=== PATIENT | male | born 1990 | race Caucasian/White ===

== ENCOUNTER 2017-01-21 03:51 | Inpatient (IN) | payer OTHER ==
[~2017-01-21] VITALS: Ht 160 cm; Wt 54.0 kg
--- NOTE | ~2017-01-21 | CON ---
[place], [place] REPORT OF CONSULTATION NAME: JOSS CARMONA UNIT #: [id number] ROOM: 505 DOCTOR: YURY NASCIMENTO DMD BIRTHDATE: [birth year] DOS: 01/21/2017 REASON FOR CONSULTATION: An upper anterior abscess. On exam, minimal swelling in the right mid . The patient states that pain and swelling have distinctly improved since admission. Intraoral exam, tooth #3 carries to the gumline. Moderate abscess extending from tooth #7 across the midline to tooth #10. Teeth #8, 9 and 10 appear to be . Abscess appears to be spontaneously draining. Discussed the treatment options with the patient including extraction and drainage or root canal therapy. The patient is currently seeing private dentist for treatment. Recommend the patient follow up with private dentist once the patient is discharged from the hospital. I would recommend that he be monitored for overnight and then released with oral antibiotic therapy to follow up with treatment. YURY NASCIMENTO DMD CM:CONSTR:REPORT OF CONSULTATION [id number] 01/21/17 1457 interface
[~2017-01-21 03:51] MED LIST: AFRIN SINUS 1515 ML NS; AMOXICILLIN500 MG PO; AMPICILLIN500 MG PO; ATIVAN1 MG PO; CLEOCIN150 MG PO; ENTEX PSE 400 M1 CER PO; HYDROCODONE BIT1 T11 PO; PENICILLIN VK500 MG PO; Peridex 473 ML473 ML PO; ULTRAM50 MG PO
[2017-01-21 04:05] VITALS: BP 127/89
[2017-01-21 04:29] LABS: BASO % 0.3 % (0.0-1.0); EOS # 0.1 10*3/uL (0.0-0.4); EOS % 1.3 % (1.0-4.0); HEMATOCRIT 39.9 % (42.0-52.0); LYMPH # 2.3 10*3/uL (1.3-4.4); LYMPH % 25.2 % (27.0-41.0); MEAN CELL VOLUME 90.7 fl (80.0-94.0); MEAN CORPUSCULAR HGB 29.5 pg (27.0-31.0); MEAN CORPUSCULAR HGB CONC 32.6 g/dl (33.0-37.0); MEAN PLATELET VOLUME 11.2 fl (9.6-12.3); MONO # 0.8 10*3/uL (0.1-1.0); MONO % 8.1 % (3.0-9.0); NEUT % 64.8 % (47.0-73.0); PLATELET COUNT AUTOMATED 173 10*3/uL (130-400); RED CELL DISTRI WIDTH 12.6 % (0-14.5); WHITE BLOOD COUNT 9.3 10*3/uL (4.8-10.8)
[2017-01-21 04:47] LABS: ALBUMIN 3.5 gm/dl (3.1-4.5); ALKALINE PHOSPHATASE 67 U/L (45-117); BUN 9 mg/dl (7-24); CHLORIDE 104 mmol/L (98-107); CREATININE 0.79 mg/dL (0.70-1.30); POTASSIUM 3.3 mmol/L (3.5-5.1); SGOT/AST 22 IU/L (3-35); SGPT/ALT 26 U/L (12-78); SODIUM 140 mmol/L (136-145); TOTAL PROTEIN 7.4 gm/dL (6.4-8.2)
--- NOTE | 2017-01-21 06:32 | NUR ---
PRIOR TO TRANSPORTING PT UP TO FLOOR. PT C/O CHEST PAIN. DR WILKERSON NOTIFIED AND ASSESSED PT.
[2017-01-21 06:40] VITALS: BP 119/71
--- NOTE | 2017-01-21 06:40 | NUR ---
Time: 639 A 26 year old MALE admitted to 5E under services of DEEP PATHAK DO, Pt. arrived via stretcher from ER. Chief complaint: CAME IN WITH C/O DENTAL ABSCESS. AB KEITH
[2017-01-21 07:20] LABS: ACT PARTIAL THROMBO TIME 26.3 SECONDS (20.8-31.5)
[2017-01-21 08:00] VITALS: BP 117/68
--- NOTE | 2017-01-21 08:04 | NUR ---
PT COMPLAINS OF FACIAL PAIN, MORPHINE GIVEN, SEE MAR. WILL MONITOR FOR EFFECTIVENESS.
--- NOTE | 2017-01-21 08:16 | NUR ---
called dr. benton office to notify of consult. staff given information on patient and reason for consult. they will notify physician of consult.
--- NOTE | 2017-01-21 09:22 | NUR ---
PT STATES MORPHINE HELPED "SOME. DIDN'T LAST LONG" STATES STILL NEESD PAIN MEDICAION RELIEF, NORCO GIVEN. SEE MAR.WILL MONITOR FOR EFFECTIVENESS
--- NOTE | 2017-01-21 10:30 | NUR ---
NORCO EFFECTIVE FOR PAIN
[2017-01-21 12:00] VITALS: BP 97/54
--- NOTE | 2017-01-21 12:30 | NUR ---
PT COMPLAINS OF PAIN RIGHT SIDE OF FACE. MORHPINE GIVEN. SEE MAR. WILL MONITOR FOR EFFECTIVENESS
--- NOTE | 2017-01-21 13:43 | NUR ---
DR. HOLT IN TO SEE PATIENT.
--- NOTE | 2017-01-21 14:25 | NUR ---
PT COMPLIANS OF PAIN IN RIGHT FACE. NORCO GIVEN. SEE MAR. WILL MONITOR FOR EFFECTIVENESS
--- NOTE | 2017-01-21 15:30 | NUR ---
NORCO EFFECTIVE FOR PAIN
[2017-01-21 16:00] VITALS: BP 95/50
--- NOTE | 2017-01-21 16:24 | NUR ---
Shift chart check completed.
--- NOTE | 2017-01-21 17:39 | NUR ---
PT COMPLIANS OF PAIN 5/10 RIGHT FACIAL AREA. MORPHINE GIVEN. SEE MAR. MONITOR FOR EFFECTIVENESS
--- NOTE | 2017-01-21 19:50 | NUR ---
MEDICATED WITH NORCO FOR C/O PAIN ON RIGHT SIDE OF MOUTH RATED A 4/10.
[2017-01-21 20:00] VITALS: BP 111/65
--- NOTE | 2017-01-21 21:00 | NUR ---
STATES ONELIACO TAKES THE EDGE OF OFF THE PAIN.
--- NOTE | 2017-01-21 22:24 | NUR ---
MEDICATED WITH MS 2 MG SLOW IV PUSH FOR C/O RIGHT SIDED MOUTH/JAW PAIN RATED A 6/10.
[2017-01-22] VITALS: BP 119/76
[2017-01-22 07:03] LABS: BASO % 0.7 % (0.0-1.0); EOS # 0.2 10*3/uL (0.0-0.4); EOS % 3.2 % (1.0-4.0); HEMATOCRIT 37.9 % (42.0-52.0); HEMOGLOBIN 12.4 g/dl (14.0-18.0); LYMPH # 2.4 10*3/uL (1.3-4.4); LYMPH % 42.4 % (27.0-41.0); MEAN CELL VOLUME 92.9 fl (80.0-94.0); MEAN CORPUSCULAR HGB 30.4 pg (27.0-31.0); MEAN CORPUSCULAR HGB CONC 32.7 g/dl (33.0-37.0); MEAN PLATELET VOLUME 11.2 fl (9.6-12.3); MONO # 0.5 10*3/uL (0.1-1.0); MONO % 9.6 % (3.0-9.0); NEUT # 2.4 10*3/uL (2.3-7.9); NEUT % 43.9 % (47.0-73.0); PLATELET COUNT AUTOMATED 150 10*3/uL (130-400); RED BLOOD COUNT 4.08 10*6/uL (4.50-5.90); RED CELL DISTRI WIDTH 12.7 % (0-14.5); WHITE BLOOD COUNT 5.5 10*3/uL (4.8-10.8)
[2017-01-22 07:33] LABS: BUN 6 mg/dl (7-24); CHLORIDE 107 mmol/L (98-107); CHOLESTEROL 116 mg/dL (<200); CREATININE 0.66 mg/dL (0.70-1.30); HDL CHOLESTEROL 28 mg/dl (40-60); LDL CHOLESTEROL 73 mg/dL (9-159); POTASSIUM 3.9 mmol/L (3.5-5.1); SODIUM 143 mmol/L (136-145); TRIGLYCERIDES 77 mg/dl (<150); VLDL CHOLESTEROL 15 mg/dL (6-40)
[2017-01-22 07:36] LABS: ACT PARTIAL THROMBO TIME 25.6 SECONDS (20.8-31.5)
--- NOTE | 2017-01-22 07:40 | NUR ---
EARLIER MEDS RELIEVING PAIN PER PT. WILL CONTINUE TO MONITOR. CALL LIGHT EDWINA MELENDEZ. VSS.
[2017-01-22 07:54] VITALS: BP 111/69
--- NOTE | 2017-01-22 10:39 | NUR ---
PT SLEEPING. NO VOICED COMPLAINTS. WILL CONTINUE TO MONITOR.
--- NOTE | 2017-01-22 11:44 | NUR ---
IN TO SEE PATIENT.
[2017-01-22] MEDS ORDERED: CLEOCIN HCL300 MG PO (11:47)
[2017-01-22] MEDS ORDERED: Motrin,Rufen800 MG PO (11:47)
--- NOTE | 2017-01-22 11:47 | NUR ---
PT GIVEN IV MORPHINE SLOWLY PER PRN ORDER FOR C/O FACIAL PAIN D/T INFECTED TOOTH. WILL MONITOR EFFECTIVENESS.
[2017-01-22 11:52] VITALS: BP 107/58
--- NOTE | 2017-01-22 12:25 | NUR ---
EARLIER PAIN MEDICATION EFFECTIVE PER PT.
--- NOTE | 2017-01-22 13:48 | NUR ---
Discharge instructions reviewed with patient/family. Patient receptive and verbalizes understanding. Follow-up care arranged. Written instructions given to patient/family. KHOA HALL.
== END 2017-01-22 14:00 | disposition home or self-care (01) | DRG 158 ==
LOC: ED 03:51 → 5E 05:27
PROVIDERS: Internal Medicine; Student in an Organized Health Care Education/Training Program; ADMIT Internal Medicine
DX: K04.7 Periapical abscess without sinus (principal); E44.1 Mild protein-calorie malnutrition; E87.6 Hypokalemia; D64.9 Anemia, unspecified; Z71.6 Tobacco abuse counseling; Z68.26 Body mass index [BMI] 26.0-26.9, adult; Z72.0 Tobacco use

== ENCOUNTER 2017-02-18 17:50 | Emergency (ER) | payer OTHER ==
[~2017-02-18 17:50] MED LIST changes: +CLEOCIN HCL300 MG PO; +Motrin,Rufen800 MG PO
[2017-02-18] MEDS ORDERED: NAPROSYN500 MG PO (18:07)
== END 2017-02-18 19:23 | disposition home or self-care (01) ==
LOC: ED 17:50
DX: S90.32XA Contusion of left foot, initial encounter (principal); R03.0 Elevated blood-pressure reading, without diagnosis of hypertension; F17.200 Nicotine dependence, unspecified, uncomplicated; W20.8XXA Other cause of strike by thrown, projected or falling object, initial encounter; Y93.89 Activity, other specified; Y92.89 Other specified places as the place of occurrence of the external cause; Y99.8 Other external cause status

== ENCOUNTER 2017-11-07 22:11 | Emergency (ER) | payer OTHER ==
[~2017-11-07] VITALS: Ht 167.6 cm; Wt 56.7 kg
[~2017-11-07 22:11] MED LIST changes: +NAPROSYN500 MG PO
[2017-11-07] MEDS ORDERED: Motrin,Rufen800 MG PO (22:33)
[2017-11-07] MEDS ORDERED: CLINDAMYCIN150 MG PO (22:33)
== END 2017-11-07 22:50 | disposition home or self-care (01) ==
LOC: ED 22:11
DX: K08.89 Other specified disorders of teeth and supporting structures (principal); K04.01 Reversible pulpitis; K02.9 Dental caries, unspecified; F41.9 Anxiety disorder, unspecified; F17.200 Nicotine dependence, unspecified, uncomplicated; Z79.899 Other long term (current) drug therapy

== ENCOUNTER 2018-02-26 12:48 | Emergency (ER) | payer OTHER ==
[~2018-02-26] VITALS: Ht 165.1 cm; Wt 59.0 kg
[~2018-02-26 12:48] MED LIST changes: +CLINDAMYCIN150 MG PO
[2018-02-26] MEDS ORDERED: IBUPROFEN600 MG PO (13:26)
[2018-02-26] MEDS ORDERED: AUGMENTIN 875875 MG PO (13:26)
== END 2018-02-26 13:44 | disposition home or self-care (01) ==
LOC: ED 12:48
DX: K02.9 Dental caries, unspecified (principal); F17.200 Nicotine dependence, unspecified, uncomplicated

== ENCOUNTER 2019-04-12 04:11 | Emergency (ER) | payer OTHER ==
[~2019-04-12] VITALS: Ht 167.6 cm; Wt 61.2 kg
[~2019-04-12 04:11] MED LIST changes: +AUGMENTIN 875875 MG PO; +IBUPROFEN600 MG PO
[2019-04-12] MEDS ORDERED: CLINDAMYCIN HC300 MG PO (05:12)
[2019-04-12] MEDS ORDERED: ULTRAM50 MG PO (05:16)
== END 2019-04-12 05:35 | disposition home or self-care (01) ==
LOC: ED 04:11
DX: K04.7 Periapical abscess without sinus (principal); F17.200 Nicotine dependence, unspecified, uncomplicated; Z79.2 Long term (current) use of antibiotics; Z79.899 Other long term (current) drug therapy

== ENCOUNTER 2024-03-01 18:44 | Emergency (ER) | payer OTHER ==
[~2024-03-01] VITALS: Ht 167.6 cm; Wt 74.8 kg
[~2024-03-01 18:44] MED LIST changes: +CLINDAMYCIN HC300 MG PO
[2024-03-01] MEDS ORDERED: PREDNISONE10 MG PO (19:30)
== END 2024-03-01 19:40 | disposition home or self-care (01) ==
LOC: ED 18:44
DX: R21 Rash and other nonspecific skin eruption (principal); F41.9 Anxiety disorder, unspecified; F17.200 Nicotine dependence, unspecified, uncomplicated; Z98.890 Other specified postprocedural states